=== PATIENT | female | born 1925 | race Caucasian/White ===

== ENCOUNTER → 2016-08-20 | Outpatient (CLI) | payer MEDICARE, BC ==
--- NOTE | 2016-08-20 15:23 | CR ---
EXAMINATION: Oropharyngeal video swallow study. HISTORY: Dysphasia COMPARISON: None TECHNIQUE: Lateral images obtained, speech pathologist present, various barium consistencies provide d. FINDINGS: There is a delay in bolus formation and transfer. There is adequate epiglottic inversion a nd tracheal elevation. Mild penetration is noted within liquids without evidence of aspiration. Pudd ing and solid foods were well tolerated. IMPRESSION: 1. Meningeal penetration without evidence of aspiration. Please see speech pathology report for full details.
== END ==
LOC: MW.DI 13:14
PROVIDERS: ATTEND Family Medicine
DX: R13.10 Dysphagia, unspecified (principal)
CPT/HCPCS: 74230; 74230-26; 92611-GN